=== PATIENT | male | born 1995 | race Caucasian/White ===

== ENCOUNTER → 2024-05-02 | Outpatient (CLI) | payer OTHER, SELFPAY ==
[2024-05-02 17:18] LABS: Absolute Lymphocyte Count 2.38 X10^3/uL (0.83-4.51); Absolute Neutrophil Count 5.2 X10^3/uL (2.0-7.7); Basophil# 0.04 X10^3/uL; Basophil% 0.5 % (0-1); Eosinophil# 0.18 X10^3/uL; Eosinophils% 2.1 % (0-5); Hematocrit 48.1 % (40-54); Hemoglobin 15.6 g/dL (13.0-16.5); Lymphocyte # 2.38 X10^3/ul (0.83-4.51); Mean Corp Hgb Conc 32.4 g/dL (32-36); Mean Corpuscular Hgb 28.4 pg (27.0-32.0); Mean Corpuscular Volume 87.6 fL (80-94); Mean Platelet Vol. 10.4 fl (6.2-12.0); Monocyte# 0.69 X10^3/uL; Monocyte% 8.1 % (0-10); NRBC Flagged by Analyzer 0 % (0-5); Neutrophil # 5.17 X10^3/uL (2.7-7.7); Neutrophil % 60.9 % (47-70); Platelet Count 269 K/mm3 (150-450); RBC Distribution Width CV 13.2 % (11.6-14.6); RBC Distribution Width SD 42.8 fl (35.1-43.9); Red Blood Count 5.49 M/mm3 (4.6-6.2); White Blood Count 8.5 K/mm3 (4.4-11.0)
[2024-05-02 18:15] LABS: Hemoglobin A1c 5.3 % (3.8-5.6)
[2024-05-02 18:26] LABS: AST(SGOT) 27 U/L (15-37); Alanine Aminotransfer ALT/SGPT 32 U/L (16-61); Albumin, Serum 3.8 g/dL (3.2-5.0); Alkaline Phosphatase 52 U/L (45-117); Anion Gap 5 (5-15); BUN 18 mg/dL (7-18); BUN/Creat Ratio 16.4 RATIO (10-20); Calcium,Total 8.9 mg/dL (8.5-10.1); Chloride 106 mmol/L (98-107); Cholesterol 205 mg/dL (200); EST Glomerular Filtration Rate 84 mL/min (>60); Est Glom Filt Rate - Afr Amer 101 mL/min (>60); Globulin 3.8 g/dL (2.2-4.2); Glucose 86 mg/dL (74-106); High Density Lipoprotein 54 mg/dL; Potassium 3.8 mmol/L (3.5-5.1); Protein, Total 7.6 g/dL (6.4-8.2); Sodium Level 139 mmol/L (136-145); Triglycerides 167 mg/dL; Very Low Density Lipoprotein 33 mg/dL (5-40)
== END | disposition home or self-care (01) ==
LOC: VSLAB 13:51
PROVIDERS: PCP Family Medicine
DX: Z00.00 Encounter for general adult medical examination without abnormal findings (principal)
CPT/HCPCS: 36415; 80053; 80061; 83036; 84443; 85025

== ENCOUNTER 2024-08-21 12:52 | Outpatient (CLI) | payer OTHER, SELFPAY ==
--- NOTE | 2024-08-21 13:00 | ECHOD_ITS ---
Reason For Study Reason For Study: DIZZINESS/GIDDINESS Procedure This was a 2D Doppler, Color Flow transthoracic echocardiogram. Exam performed in department. Left Ventricle Normal LV size. Left ventricular systolic function is normal. The left ventricular ejection fraction is 65 %. No regional wall motion abnormalities noted. Right Ventricle Normal RV size. Normal systolic function. Atria Normal left atrium. Normal right atrium. Mitral Valve Normal mitral valve. Tricuspid Valve Normal tricuspid valve. Mild (1+) tricuspid valve insufficiency. Aortic Valve Trisinus/trileaflet aortic valve. Pulmonic Valve Normal pulmonic valve. Great Vessels Normal sized aortic root. The pulmonary artery is normal size. Inferior vena cava collapse with respiration. Pericardium/Pleural No pericardial effusion. MMode/2D Measurements & Calculations LVIDd: 6.0 cm IVSd: 1.1 cm Ao root diam: 2.9 cm LVIDs: 4.1 cm LVPWd: 1.1 cm RVDd: 4.2 cm FS: 31.1 % LAV(MOD-bp): 58.6 ml LVAd ap4: 40.5 cm2 LVAd ap2: 37.2 cm2 LAV(MOD-bp) Indexed: 23.6 ml/m2 LVLd ap4: 8.4 cm LVLd ap2: 8.9 cm LAV(MOD-sp2): 56.1 ml EDV(MOD-sp4): 157.0 ml EDV(MOD-sp2): 128.8 ml LAV(MOD-sp4): 56.8 ml EDV(sp4-el): 165.4 ml EDV(sp2-el): 131.9 ml LVAs ap4: 22.1 cm2 LVAs ap2: 17.7 cm2 LVLs ap4: 7.2 cm LVLs ap2: 7.0 cm ESV(MOD-sp4): 56.0 ml ESV(MOD-sp2): 38.4 ml ESV(sp4-el): 57.6 ml ESV(sp2-el): 38.3 ml EF(MOD-sp4): 64.3 % EF(MOD-sp2): 70.2 % EF(sp4-el): 65.2 % SV(MOD-sp4): 101.0 ml SV(MOD-sp2): 90.4 ml SV(sp4-el): 107.8 ml SI(MOD-sp4): 40.6 ml/m2 SI(MOD-sp2): 36.4 ml/m2 LA A4 area: 19.5 cm2 LA dimension(2D): 4.5 cm RA A4 area: 17.2 cm2 TAPSE: 2.5 cm Time Measurements MV dec time: 0.20 sec Doppler Measurements & Calculations MV E max chung: 79.2 cm/sec Lat Peak E' Chung: 18.3 cm/sec Med Peak E' Chung: 14.2 cm/sec MV A max chung: 50.7 cm/sec E/E' lat: 4.3 E/E' med: 5.6 MV E/A: 1.6 MV V2 max: 105.6 cm/sec MV P1/2t max chung: 103.2 cm/sec Ao V2 max: 148.5 cm/sec MV max P.5 mmHg MV P1/2t: 60.2 msec Ao max P.8 mmHg MV V2 mean: 46.6 cm/sec Ao V2 mean: 98.1 cm/sec MV mean P.1 mmHg MV dec slope: 502.0 cm/sec2 Ao mean P.3 mmHg MV V2 VTI: 29.4 cm MVA(P1/2t): 3.7 cm2 Ao V2 VTI: 29.6 cm AV (velocity ratio): 0.74 LV V1 max: 106.6 cm/sec PA V2 max: 114.2 cm/sec TR max chung: 220.5 cm/sec LV V1 max P.5 mmHg PA V2 mean: 82.3 cm/sec TR max P.5 mmHg LV V1 mean P.5 mmHg LV V1 mean: 74.4 cm/sec LV V1 VTI: 21.9 cm ECHO/Echo Complete Interpretation Summary Normal LV size. Left ventricular systolic function is normal. The left ventricular ejection fraction is 65 %. Structurally normal valves. Ordering Physician: Dinora Castillo Referring Physician: Angelica Mackenzie Performed By: Christina Weathers, MATTHEW, RVT
== END 2024-08-21 23:59 | disposition home or self-care (01) ==
PROVIDERS: PCP Family Medicine
DX: R42 Dizziness and giddiness (principal)
CPT/HCPCS: 93306

== ENCOUNTER 2024-09-27 14:33 | Emergency (ER) | payer OTHER, SELFPAY ==
[2024-09-27 14:34] VITALS: BP 133/75; PULSE 88; RESP 16; TEMP 36.6; O2SAT 99; BMI 39.2
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
[2024-09-27 16:53] VITALS: BP 118/63; PULSE 64; RESP 16; O2SAT 97
[2024-09-27 17:10] VITALS: BP 118/63; PULSE 64; RESP 16; TEMP 36.6; O2SAT 97
== END 2024-09-27 17:12 | disposition home or self-care (01) ==
PROVIDERS: Emergency Provider Emergency Medicine; PCP Family Medicine; Visit Provider Emergency Medicine
DX: S06.0XAA Concussion with loss of consciousness status unknown, initial encounter (principal); S00.83XA Contusion of other part of head, initial encounter; Y92.410 Unspecified street and highway as the place of occurrence of the external cause; V43.62XA Car passenger injured in collision with other type car in traffic accident, initial encounter
CPT/HCPCS: 70450; 99282